=== PATIENT | male | born 1960 | race Caucasian/White ===

== ENCOUNTER 2017-05-08 11:10 | Emergency (ER) | payer OTHER ==
--- NOTE | 2017-05-08 11:57 | Emergency Department Report ---
Chief Complaint: Chest Pain Stated Complaint: CHEST PAIN Time Seen by Provider: 05/08/17 11:53 - HPI History of Present Illness: This is a 57-year-old male with no prior medical history presents with left- sided sharp, intermittent chest pain 2 days. Patient states worsened with bending or laying down. States pain is alleviated with sitting up. He admits to mild shortness of breath He denies fevers/chills/nausea/vomiting/taken medications or any allergies. - ROS Review of Systems: HPI noted - Exam Vital Signs: Vital Signs 05/08/17 11:20 Temperature 98.3 F Pulse Rate 92 H Respiratory 20 Rate Blood Pressure 110/70 O2 Sat by Pulse 97 Oximetry Physical Exam: GENERAL: Alert and oriented x3, no apparent distress, Normal Gait, atraumatic. LUNGS: Symetrical with respiration, crisp breath sounds, No wheezing, no rales or crackles, HEART: S1, S2 present, regular rate and rhythm without murmur, no rubs, no gallops. Non tender to palpation MSE screening note: Focused history and physical exam performed. Due to findings the following was ordered: ED Medical Decision Making - Medical Decision Making Chest pain protocol ordered. Chest x-ray ordered. Patient's recent ED physician. ED Disposition for MSE Condition: Stable
--- NOTE | 2017-05-08 13:13 | XRay Report ---
ROUTINE CHEST, TWO VIEWS: HISTORY: Chest pain, shortness of breath. The lungs are hyperinflated consistent with underlying emphysema. Left hilar prominence and infiltrate/atelectasis at the lingula is identified. A left hilar mass is suspected until proven otherwise. No pleural effusion or pneumothorax. Heart and pulmonary vascularity are within normal limits. No acute bony abnormality. IMPRESSION: Emphysematous changes. Lingular opacity and possible left hilar mass. Further evaluation with CT chest with contrast is recommended.
[2017-05-08 13:43] LABS: Anion Gap 20 mmol/L; Blood Urea Nitrogen 12 mg/dL (9-20); Calcium 8.9 mg/dL (8.4-10.2); Carbon Dioxide 22 mmol/L (22-30); Chloride 100.4 mmol/L (98-107); Glucose 91 mg/dL (75-100); Sodium 138 mmol/L (137-145)
[2017-05-08 13:51] LABS: Basophils % (Auto) 0.9 % (0.0-1.8); Eosinophils % (Auto) 3.3 % (0.0-4.3); Hemoglobin 9.9 gm/dl (11.8-15.2); Mean Corpuscular HGB Conc 32 % (32-34); Mean Corpuscular Hemoglobin 28 pg (28-32); Mean Corpuscular Volume 88 fl (84-94); Platelet Count 407 K/mm3 (140-440); Red Blood Count 3.51 M/mm3 (3.65-5.03); Red Cell Distribution Width 17.5 % (13.2-15.2); White Blood Count 10.7 K/mm3 (4.5-11.0)
[2017-05-08] MEDS ORDERED: NACL 0.9% 1000 ML 1,000 ML IV ONE (15:56)
--- NOTE | 2017-05-08 15:59 | Emergency Department Report ---
ED General Adult HPI - General Chief complaint: Chest Pain Stated complaint: CHEST PAIN Time Seen by Provider: 05/08/17 11:53 Source: patient, family, RN notes reviewed Mode of arrival: Ambulatory Limitations: No Limitations - History of Present Illness Initial comments: This is a 57-year-old male. He is previously unknown to me. He does not have a primary care doctor. He does not have chronic medical medical conditions that he is aware of. He reports that he is a chronic tobacco and cannabis consumer. As per family, he has not seen a physician in 40 years. The patient presents to the ER with left-sided chest pain. The pain is intermittent. It does not radiate to the back, arms or neck. Patient admits to night sweats. He endorses an unintentional 25 pound weight loss within the past month. There is no hematemesis. There is no bright red blood per rectum. There is no leg pain. There is no leg swelling. No recent trips greater than 4 hours. No recent hospital admissions. -: Gradual Location: chest Severity scale (0 -10): 8 Quality: aching Consistency: intermittent Improves with: none Worsens with: none Associated Symptoms: chest pain, fever/chills, loss of appetite, malaise, weakness. denies: cough, diaphoresis, headaches, shortness of breath, syncope - Related Data Previous Rx's Medication Instructions Recorded Last Taken Type Ibuprofen [Motrin] 600 mg PO Q8H PRN #30 tablet 05/08/17 Unknown Rx oxyCODONE [Roxicodone] 5 mg PO Q6HR PRN #15 tablet 05/08/17 Unknown Rx Allergies Allergy/AdvReac Type Severity Reaction Status Date / Time No Known Allergies Allergy Unverified 05/08/17 11:20 ED Review of Systems ROS: Stated complaint: CHEST PAIN Other details as noted in HPI Constitutional: denies: fever Eyes: denies: vision change ENT: denies: epistaxis Respiratory: see HPI Cardiovascular: chest pain Gastrointestinal: denies: abdominal pain, nausea, diarrhea, hematemesis, melena , hematochezia Genitourinary: denies: urgency, dysuria Musculoskeletal: denies: back pain Skin: denies: lesions Neurological: weakness Psychiatric: as per HPI ED Past Medical Hx - Past Medical History Previous Medical History?: No - Surgical History Past Surgical History?: No - Social History Smoking Status: Current Every Day Smoker Substance Use Type: Alcohol, Marijuana, Non Opiate Pain - Medications Home Medications: Home Medications Medication Instructions Recorded Confirmed Last Taken Type Ibuprofen [Motrin] 600 mg PO Q8H PRN #30 tablet 05/08/17 Unknown Rx oxyCODONE [Roxicodone] 5 mg PO Q6HR PRN #15 tablet 05/08/17 Unknown Rx ED Physical Exam - General Limitations: No Limitations General appearance: alert, in no apparent distress - Head Head exam: Present: atraumatic, normocephalic - Eye Eye exam: Present: normal appearance, EOMI. Absent: nystagmus - ENT ENT exam: Present: normal exam, normal orophraynx, mucous membranes moist, normal external ear exam - Neck Neck exam: Present: normal inspection, full ROM. Absent: tenderness, meningismus - Respiratory Respiratory exam: Present: normal lung sounds bilaterally. Absent: respiratory distress, wheezes, rales, rhonchi, stridor, chest wall tenderness, accessory muscle use, decreased breath sounds, prolonged expiratory - Cardiovascular Cardiovascular Exam: Present: regular rate, normal rhythm, normal heart sounds. Absent: bradycardia, tachycardia, irregular rhythm, systolic murmur, diastolic murmur, rubs, gallop - GI/Abdominal GI/Abdominal exam: Present: soft, normal bowel sounds. Absent: distended, tenderness, guarding, rebound, rigid, pulsatile mass - Rectal Rectal exam: Present: deferred - Extremities Exam Extremities exam: Present: normal inspection, full ROM, normal capillary refill. Absent: tenderness, pedal edema, joint swelling, calf tenderness - Back Exam Back exam: Present: normal inspection, full ROM. Absent: tenderness, CVA tenderness (R), CVA tenderness (L), muscle spasm, paraspinal tenderness, vertebral tenderness - Neurological Exam Neurological exam: Present: alert, oriented X3, normal gait, other (Extraocular movements intact. Tongue midline. No facial droop. Facial sensation intact to light touch in the V1, V2, V3 distribution bilaterally. 5 and 5 strength in 4 extremities.. Sensation is intact to light touch in 4 extremities.). Absent : motor sensory deficit - Psychiatric Psychiatric exam: Present: normal affect, normal mood - Skin Skin exam: Present: warm, dry, intact, normal color. Absent: rash ED Course Vital Signs 05/08/17 05/08/1717 11:20 15:00 15:10 Temperature 98.3 F Pulse Rate 92 H 94 H 85 Respiratory 20 31 H 27 H Rate Blood Pressure 110/70 Blood Pressure [Left] O2 Sat by Pulse 97 93 97 Oximetry 05/08/17 05/08/17 05/08/17 15:21 15:30 15:41 Temperature Pulse Rate 85 88 91 H Respiratory 24 24 25 H Rate Blood Pressure 125/79 134/79 134/79 Blood Pressure [Left] O2 Sat by Pulse 93 95 96 Oximetry 05/08/17 05/08/17 05/08/17 15:51 15:52 16:00 Temperature 100.3 F H Pulse Rate 89 94 H 89 Respiratory 20 18 27 H Rate Blood Pressure 134/79 134/79 Blood Pressure 125/79 [Left] O2 Sat by Pulse 95 94 94 Oximetry 05/08/17 05/08/17 05/08/17 16:11 16:21 16:30 Temperature Pulse Rate 84 87 89 Respiratory 24 20 19 Rate Blood Pressure 131/83 131/83 128/83 Blood Pressure [Left] O2 Sat by Pulse 96 95 94 Oximetry 05/08/17 05/08/17 05/08/17 17:21 17:30 17:41 Temperature Pulse Rate 86 85 Respiratory 19 15 Rate Blood Pressure 128/83 137/86 137/86 Blood Pressure [Left] O2 Sat by Pulse 98 95 93 Oximetry 05/08/17 05/08/17 05/08/17 17:51 18:00 18:11 Temperature Pulse Rate 87 87 88 Respiratory 20 18 21 Rate Blood Pressure 128/83 142/79 142/79 Blood Pressure [Left] O2 Sat by Pulse 93 92 93 Oximetry 05/08/17 05/08/17 05/08/17 18:21 18:30 18:41 Temperature Pulse Rate 88 86 88 Respiratory 18 19 19 Rate Blood Pressure 142/79 140/84 140/84 Blood Pressure [Left] O2 Sat by Pulse 91 91 93 Oximetry 05/08/17 05/08/17 05/08/17 18:51 19:00 19:11 Temperature Pulse Rate 85 86 87 Respiratory 19 21 20 Rate Blood Pressure 140/84 136/82 136/82 Blood Pressure [Left] O2 Sat by Pulse 93 91 95 Oximetry 05/08/17 05/08/17 05/08/17 19:21 19:30 19:41 Temperature Pulse Rate 84 82 83 Respiratory 19 18 19 Rate Blood Pressure 136/82 130/82 130/82 Blood Pressure [Left] O2 Sat by Pulse 91 93 93 Oximetry 05/08/17 05/08/17 05/08/17 19:51 20:00 20:11 Temperature Pulse Rate 85 85 81 Respiratory 15 26 H 16 Rate Blood Pressure 130/82 125/79 125/79 Blood Pressure [Left] O2 Sat by Pulse 93 92 92 Oximetry 05/08/17 20:32 Temperature 99.7 F H Pulse Rate Respiratory Rate Blood Pressure Blood Pressure [Left] O2 Sat by Pulse Oximetry - Reevaluation(s) Reevaluation #1: 05/08/17 16:26 differential diagnosis: Acute coronary syndrome, cancer, tumor, malignancy, pulmonary embolus Assessment and plan: 57-year-old male with unintentional weight loss, night sweats, atypical chest pain, low risk by heart score, low risk by MAXIM score, having chest pain on and off for a few months, worse over the past few days. X-ray of the chest demonstrates a left-sided mass, his clinical history does not appear to be consistent with pneumonia. CT scan of the chest is ordered to better delineate. Given concern for cancer/malignancy, we will also obtain CT scan of the abdomen, pelvis to assess for metastatic spread. Reevaluation #2: 05/08/17 16:28 low-grade temperature is appreciated, maybe secondary to cancer/ tumor/malignancy. Acetaminophen is ordered. The case was also discussed with the oncologist fire investigation manager, Dr. Jose Antonio Colvin, who agreed to follow-up the patient is an outpatient. 05/08/17 18:59 Reevaluation #3: 05/08/17 18:57 As expected, CT scan of the chest demonstrates left-sided complex thoracic mass , concerning for cancer/tumor/malignancy. There are a few other incidental findings noted on the CT scan of the chest. The CT scan of the abdomen and pelvis does not demonstrate any significant findings. Clinically doubt ileus, there is no abdominal pain, tenderness, rebound, guarding or peritoneal signs. The case is discussed with the thoracic surgeon at [facility], Dr. Aneudy Latham, and I have specifically discussed the patient's history, physical exam, laboratory studies, and CT scan findings. Dr. Latham recommends that the patient follow-up with him in outpatient within the next week, and he indicates he can take over the patient's care from there. I had an extensive discussion with the patient regarding his CAT scan findings, and impressed upon him the urgent need to follow up as an outpatient for his probable lung cancer. He verbalized understanding and understands the importance of close outpatient follow-up. 05/10/17 00:57 ED Medical Decision Making - Lab Data Result diagrams: 05/08/17 13:08 05/08/17 13:08 Vital Signs 05/08/17 05/08/17 11:20 15:52 Temperature 98.3 F 100.3 F H Pulse Rate 92 H 94 H Respiratory 20 18 Rate Blood Pressure 110/70 Blood Pressure 125/79 [Left] O2 Sat by Pulse 97 94 Oximetry Labs 05/08/17 05/08/17 13:08 13:08 WBC 10.7 RBC 3.51 L Hgb 9.9 L Hct 31.0 L MCV 88 MCH 28 MCHC 32 RDW 17.5 H Plt Count 407 Lymph % (Auto) 15.1 Brooks % (Auto) 11.6 H Eos % (Auto) 3.3 Baso % (Auto) 0.9 Lymph # 1.6 Brooks # 1.2 H Eos # 0.3 Baso # 0.1 Seg Neutrophils % 69.1 Seg Neutrophils # 7.4 Sodium 138 Potassium 4.0 Chloride 100.4 Carbon Dioxide 22 Anion Gap 20 BUN 12 Creatinine 1.0 Estimated GFR > 60 BUN/Creatinine Ratio 12.00 Glucose 91 Calcium 8.9 Troponin T < 0.010 - EKG Data -: EKG Interpreted by Ri EKG shows normal: sinus rhythm - EKG Data 05/08/17 16:28 Normal sinus, 88 bpm, normal axis, normal intervals, not morphologically consistent with STEMI, there is no prior EKG available for comparison. EKG #2 demonstrates sinus, 84 bpm, normal axis, premature ventricular contractions, abnormal EKG, not morphologically consistent with STEMI - Radiology Data Radiology results: report reviewed, image reviewed X-ray of the chest demonstrates hyperinflated lungs, emphysematous changes, lingular opacity and possible hilar left mass. CT scan of the chest demonstrates no pulmonary embolus. There is a large left- sided masslike consolidation in the left hilum which is extending into the left upper lobe and lingular. It is compressing the left pulmonary veins. May represent inflammation or infection, most likely neoplastic. There is a moderate left-sided pleural effusion. CT scan of the abdomen and pelvis demonstrates numerous incidental findings. Critical care attestation.: If time is entered above; I have spent that time in minutes in the direct care of this critically ill patient, excluding procedure time. ED Disposition Clinical Impression: Mass of left lung Disposition: DC-01 TO HOME OR SELFCARE Is pt being admited?: No Does the pt Need Aspirin: No Condition: Stable Instructions: Lung Cancer (ED) Additional Instructions: As we discussed, laboratory findings, and CT scan of the chest suggested left- sided lung cancer. Follow-up with the listed medical billing specialist within the next week, you may follow up with the thoracic lung specialist at [facility]; Dr. Aneudy Latham. Email [email or web address] It is very important to closely follow up within the next week as directed, to further evaluate, diagnosed, stage and manage the left lung mass. The mass is most likely cancer. Return to the ER right away with new pain, worsened pain, migration of pain, intractable nausea or vomiting, confusion, change in mental status, shortness of breath, inability to tolerate liquid feeds. Discontinue consumption of tobacco products. They are not healthy for you. Prescriptions: Ibuprofen [Motrin] 600 mg PO Q8H PRN #30 tablet PRN Reason: Pain oxyCODONE [Roxicodone] 5 mg PO Q6HR PRN #15 tablet PRN Reason: Pain Referrals: NOEMY VIGIL MD [Primary Care Provider] - 3-5 Days BENITO COLVIN MD [Staff Physician] - 3-5 Days
[2017-05-08] MEDS ORDERED: NACL ONE ×2 (16:03→16:45)
[2017-05-08] MEDS ORDERED: MORPHINE ONE (16:16)
[2017-05-08] MEDS ORDERED: TYLENOL PO ONE (16:28)
[2017-05-08 16:44] LABS: Alanine Aminotransferase 6 units/L (7-56); Albumin 3.5 g/dL (3.9-5); Alkaline Phosphatase 49 units/L (35-129); Lipase 38 units/L (13-60); Total Protein 6.9 g/dL (6.3-8.2)
[2017-05-08 16:45] LABS: Bilirubin,Direct < 0.2 mg/dL (0-0.2); Bilirubin,Indirect 0.1 mg/dL
[2017-05-08 16:52] LABS: INR 1.01 (0.87-1.13)
--- NOTE | 2017-05-08 18:06 | Cat Scan Report ---
FINAL REPORT EXAM: CT ABDOMEN PELVIS W CON HISTORY: cp TECHNIQUE: CT examination of the ABDOMEN after IV contrast CT examination of the PELVIS after IV contrast PRIORS: None. FINDINGS: Moderate left pleural effusion layers posteriorly. Adjacent slight left lower lobe compressive atelectasis. Scattered slight linear scar versus atelectasis in both lung bases. 4 mm anterior right middle lobe pulmonary ground-glass nodular opacity, series 3, image 147. Normal-appearing liver, gallbladder, adrenals, and spleen. Nonspecific slight diffuse prominence of the pancreatic ductal caliber without CT evidence of obstructing source. Pancreatic duct diameter is 3.8 mm in the head, 3.7 mm in the body, and 3.2 mm in the tail. No evidence of pancreatic mass or acute inflammation. Intact normal caliber abdominal aorta with moderate calcified and noncalcified plaque. Normal caliber IVC. Probably benign cyst in posterior left kidney. Otherwise normal-appearing kidneys and ureters. Normal-appearing stomach and duodenum. No small bowel distention in the abdomen and pelvis. No pelvic free fluid. Normal-appearing urinary bladder, prostate, and seminal vesicles. No focal abnormality in rectum and sigmoid colon. No gross ascites, free air, or colonic distention. No focal abnormality in cecum and terminal ileum. Normal-appearing appendix. Scattered nonspecific prominence of small and large bowel gas may reflect paralytic ileus. No definite obstructive pattern. IMPRESSION: Scattered prominence of small and large bowel gas may reflect paralytic ileus. Moderate left pleural effusion with adjacent slight left lower lobe compressive atelectasis 4 mm pulmonary ground-glass nodular opacity in right middle lobe Nonspecific diffuse prominence of the pancreatic duct Probably benign cyst in posterior left kidney
--- NOTE | 2017-05-08 18:17 | Cat Scan Report ---
FINAL REPORT EXAM: CT ANGIO CHEST HISTORY: cp TECHNIQUE: CT examination of the chest after IV contrast PRIORS: None. FINDINGS: Moderate left pleural effusion layers posteriorly. Minimal adjacent left lower lobe compressive atelectasis. Nonspecific dense masslike consolidation in the left hilum extends into the left upper lobe and lingula. It compresses the left pulmonary veins. Although possibly representing inflammation or infection, findings raise suspicion of neoplasm. Approximate AP dimension is 7.9 cm. Greatest dimension is 9.8 cm extending from left hilum to the anterior pleural surface. Sagittal dimension on coronal imaging is approximately 8.3 cm. A portion abuts the left main pulmonary artery and left cardiac margin. Normal cardiac size without pericardial effusion. Intact normal caliber thoracic aorta. Normal-appearing esophagus. Slight prominence of pretracheal lymph nodes without gross enlargement. No right-sided adenopathy. Please see abdomen/pelvis same-day CT report for abdominal findings. The visualized pulmonary arteries are diffusely patent bilaterally. There is no filling defect to suggest PE. No evidence of pneumothorax. No right pulmonary consolidation. 4 mm subpleural pulmonary nodule in the anterior aspect of the right middle lobe, series 3, image 95. IMPRESSION: Nonspecific masslike consolidation extends from the left hilum to the anterolateral left pleural surface of the left upper lobe and lingula. Although possibly representing inflammation or infection, findings raise suspicion of neoplasm abutting the left cardiac margin, main pulmonary artery, and narrowing the left pulmonary veins Moderate left pleural effusion with minimal adjacent compressive atelectasis Slight prominence of pretracheal lymph nodes without gross enlargement Nonspecific 4 mm subpleural pulmonary nodule in the anterior aspect of the right middle lobe
[2017-05-08] MEDS ORDERED: NACL 0.9% 1000 ML 0 ML ONE (19:08)
[2017-05-08] MEDS ORDERED: TYLENOL ONE (19:08)
[2017-05-08 20:27] VITALS: BP 125/79
[2017-05-08] MEDS ORDERED: MORPHINE IV ONE (20:32)
== END 2017-05-08 20:40 | disposition home or self-care (01) ==
LOC: ED 11:10
DX: R91.8 Other nonspecific abnormal finding of lung field (principal); F17.200 Nicotine dependence, unspecified, uncomplicated; F12.10 Cannabis abuse, uncomplicated
CPT/HCPCS: 36415; 71020; 71275; 74177; 80048; 80074; 83690; 84484; 85025; 85610; 93005; 93010; 96361; 96374; 99285; J2270; J7030; Q9967

== ENCOUNTER 2017-05-25 07:52 | Day surgery (SDC) | payer SELFPAY | END 2017-05-25 07:53 | disposition home or self-care (01) | LOC: CATHLABREC 07:52 | DX: R22.2 Localized swelling, mass and lump, trunk (principal); Z53.8 Procedure and treatment not carried out for other reasons ==

== ENCOUNTER 2017-06-21 08:23 | Day surgery (SDC) | payer OTHER ==
[2017-06-21] MEDS ORDERED: VERSED IV ONE ×3 (08:49→11:35)
[2017-06-21] MEDS ORDERED: SUBLIMAZE IV ONE (08:49)
[2017-06-21] MEDS ORDERED: NACL 0.9% 500 ML 500 ML IV SCH (09:00)
[2017-06-21 09:08] LABS: Basophils % (Auto) 2.6 % (0.0-1.8); Eosinophils % (Auto) 3.5 % (0.0-4.3); Hematocrit 31.5 % (35.5-45.6); Hemoglobin 10.1 gm/dl (11.8-15.2); Mean Corpuscular HGB Conc 32 % (32-34); Mean Corpuscular Hemoglobin 27 pg (28-32); Mean Corpuscular Volume 83 fl (84-94); Platelet Count 287 K/mm3 (140-440); Red Blood Count 3.79 M/mm3 (3.65-5.03); Red Cell Distribution Width 18.5 % (13.2-15.2); White Blood Count 9.4 K/mm3 (4.5-11.0)
[2017-06-21 09:18] LABS: INR 0.99 (0.87-1.13)
[2017-06-21] MEDS ORDERED: SUBLIMAZE ONE ×2 (10:59→11:35)
[2017-06-21 11:16] LABS: Alanine Aminotransferase 6 units/L (7-56); Albumin 4.1 g/dL (3.9-5); Albumin/Globulin Ratio 1.2 %; Alkaline Phosphatase 53 units/L (35-129); Anion Gap 20 mmol/L; Blood Urea Nitrogen 18 mg/dL (9-20); Calcium 8.9 mg/dL (8.4-10.2); Carbon Dioxide 24 mmol/L (22-30); Glucose 91 mg/dL (75-100); Potassium 4.1 mmol/L (3.6-5.0); Sodium 146 mmol/L (137-145); Total Protein 7.6 g/dL (6.3-8.2)
--- NOTE | 2017-06-21 12:51 | Cat Scan Report ---
CT guided biopsy of left lung mass. Procedure and findings: The patient's skin surface overlying the left anterior thorax was prepped and draped using sterile technique. Local anesthetic was injected into the skin. Using CT guidance, a 19-gauge sheath needle was advanced into the mass in the left upper lobe. 4 passes were made using a 20-gauge biopsy gun. Limited tissue cores were obtained, but initial touch prep slides demonstrated malignancy else, and thus the procedure was terminated. Intravenous conscious sedation was used. Intraservice time was 30 minutes. Independent cardiorespiratory monitoring was performed by the outpatient procedure nurse for 30 minutes, supervised by me. The patient tolerated procedure well clinically and was sent to the outpatient procedure unit for short term observation in satisfactory condition. A followup expiratory chest x-ray was also ordered.
[2017-06-21] MEDS ORDERED: VERSED IV NR (13:00)
--- NOTE | 2017-06-21 14:03 | Short Stay Summary ---
Short Stay Documentation Date of service: 06/21/17 - History Principal diagnosis: Lung mass - Allergies and Medications Current Medications: Allergies No Known Allergies Allergy (Unverified 05/08/17 11:20) Home Medications Medication Instructions Recorded Confirmed Last Taken Type No Known Home Medications [No 06/21/17 06/21/17 Unknown History Reported Home Medications] Active Medications Sodium Chloride (Nacl 0.9% 500 Ml) 500 mls @ 50 mls/hr IV DIRECT ALEXANDRO Last Admin: 06/21/17 09:10 Dose: 50 mls/hr Midazolam HCl (Versed) 5 mg IV ONCE NR Stop: 06/21/17 23:59 Last Admin: 06/21/17 11:40 Dose: 1 mg - Physical exam General appearance: no acute distress - Brief post op/procedure progress note Date of procedure: 06/21/17 Pre-op diagnosis: Lung mass Post-op diagnosis: same Procedure: Bx L lung mass Surgeon: CATE HOLLEY Estimated blood loss: none Specimen disposition: to lab Condition: stable - Disposition Condition at discharge: Good Disposition: DC-01 TO HOME OR SELFCARE Short Stay Discharge Plan Follow up with: PRIMARY CARE, [Primary Care Provider] - 7 Days
--- NOTE | 2017-06-21 14:42 | XRay Report ---
AP extra chest x-ray. History: Status post left lung biopsy. Findings: There is no evidence of pneumothorax. The large left lung mass is unchanged. No new findings are seen.
[2017-06-21 14:51] VITALS: BP 168/94
== END 2017-06-21 15:04 | disposition home or self-care (01) ==
LOC: CATHLABREC 08:23 → EDSTATUS 08:30 → CATHLABREC 15:04
DX: C34.12 Malignant neoplasm of upper lobe, left bronchus or lung (principal)
CPT/HCPCS: 32405; 36415; 77012; 80053; 85025; 85610; 85730; 88305; 88333; 88341; 88342; J2250; J3010; J7040; Q9967

== ENCOUNTER 2017-10-17 09:10 | Outpatient (CLI) | payer MEDICAID, SELFPAY ==
[2017-10-17 10:00] LABS: Blood Urea Nitrogen 12 mg/dL (9-20)
--- NOTE | 2017-10-17 12:30 | Cat Scan Report ---
CT CHEST WITH CONTRAST: HISTORY: Lung cancer. COMPARISON: 05/08/17. TECHNIQUE: Helical CT in 1.25mm intervals following IV contrast. Sagittal and coronal reformatted images. FINDINGS: Thyroid gland: Normal. Tracheobronchial tree: Normal. Esophagus: Normal. Heart: Normal. Pericardium: Normal. Mediastinum: Normal. Lung Hand: The large mass in the left perihilar region has essentially resolved since the CTA chest dated 05/08/[address] biopsy dated 06/21/17. There is minor scarring remaining in the lingula. This presumably represents a positive response to therapy. There are emphysematous changes throughout the remainder of both lungs but no new mass or infiltrate. Pleural Spaces: A moderate layering left pleural effusion measures up to 4 cm in thickness. Musculoskeletal: No suspicious bony lesion or fracture is identified. IMPRESSION: A positive response to therapy is demonstrated since 05/08/17. Near complete or complete resolution of the lingular mass is demonstrated. A moderate left pleural effusion remains. Emphysema.
--- NOTE | 2017-10-17 12:32 | Cat Scan Report ---
CT ABDOMEN PELVIS WITH CONTRAST: HISTORY: Lung cancer. COMPARISON: 05/08/17. TECHNIQUE: Helical CT in 1.25mm intervals following IV contrast. Sagittal and coronal reconstructions. FINDINGS: Liver: Normal. Biliary system: Normal. Pancreas: Normal. Spleen: Normal. Kidneys: Normal. 1 cm a simple left renal cyst is noted. Adrenal glands: Normal. Aorta: Normal. Intestines: Normal. Appendix: Not identified. Ascites: None. Adenopathy: None. Musculoskeletal: No suspicious bony lesion is detected. IMPRESSION: Essentially unremarkable exam of the abdomen. No evidence for metastatic disease or acute process.
== END 2017-10-17 09:11 | disposition home or self-care (01) ==
LOC: CT 09:10
DX: C34.92 Malignant neoplasm of unspecified part of left bronchus or lung (principal); J43.9 Emphysema, unspecified; N28.1 Cyst of kidney, acquired; J90 Pleural effusion, not elsewhere classified; J98.4 Other disorders of lung; F17.200 Nicotine dependence, unspecified, uncomplicated
CPT/HCPCS: 36415; 71260; 74160; 82565; 84520; Q9967

== ENCOUNTER 2018-03-28 01:14 | Emergency (ER) | payer MEDICAID ==
[2018-03-28] MEDS ORDERED: ATIVAN IV ONE (01:22)
[2018-03-28] MEDS ORDERED: ATIVAN ONE (01:22)
--- NOTE | 2018-03-28 01:32 | Emergency Department Report ---
ED Altered Mental Status HPI - General Chief Complaint: Altered Mental Status Stated Complaint: SEIZURE Time Seen by Provider: 03/28/18 01:32 Source: patient, EMS Mode of arrival: Stretcher Limitations: Altered Mental Status - History of Present Illness MD Complaint: altered mental status, decreased responsiveness -: This evening Severity: Unable to Determine Consistency of Symptoms: unknown Context: seizure disorder Associated Symptoms: weakness - Related Data Home Medications Medication Instructions Recorded Confirmed Last Taken No Known Home Medications [No 06/21/17 06/21/17 Unknown Reported Home Medications] Allergies Allergy/AdvReac Type Severity Reaction Status Date / Time No Known Allergies Allergy Unverified 05/08/17 11:20 ED Review of Systems ROS: Stated complaint: SEIZURE Other details as noted in HPI Comment: Unobtainable due to pts medical conditions ED Past Medical Hx - Past Medical History Hx Sickle Cell Disease: No Hx HIV: No Additional medical history: LUNG CANCER - Social History Smoking Status: Current Some Day Smoker - Medications Home Medications: Home Medications Medication Instructions Recorded Confirmed Last Taken Type No Known Home Medications [No 06/21/17 06/21/17 Unknown History Reported Home Medications] ED Physical Exam - General Limitations: Altered Mental Status General appearance: lethargic, obtunded, cachectic - Head Head exam: Present: atraumatic, normocephalic, normal inspection - Eye Eye exam: Present: normal appearance, PERRL, EOMI Pupils: Present: normal accommodation - ENT ENT exam: Present: normal exam - Neck Neck exam: Present: normal inspection, full ROM - Respiratory Respiratory exam: Present: normal lung sounds bilaterally - Cardiovascular Cardiovascular Exam: Present: regular rate, normal rhythm, normal heart sounds - GI/Abdominal GI/Abdominal exam: Present: soft, normal bowel sounds. Absent: tenderness, guarding - Rectal Rectal exam: Present: deferred - Extremities Exam Extremities exam: Present: normal inspection, full ROM, normal capillary refill - Back Exam Back exam: Present: normal inspection - Neurological Exam Neurological exam: Present: altered, other (GCS = 3) - Skin Skin exam: Present: warm, dry, intact ED Course Vital Signs 03/28/18 03/28/18 03/28/18 01:22 01:30 01:31 Temperature 98.2 F Pulse Rate 120 H 120 H Respiratory 24 24 Rate Blood Pressure 185/82 185/82 O2 Sat by Pulse 99 99 100 Oximetry 0503/28/18 03/28/18 01:45 02:00 02:30 Temperature Pulse Rate 129 H 138 H 125 H Respiratory 27 H 19 Rate Blood Pressure 144/84 144/84 177/101 O2 Sat by Pulse 100 100 100 Oximetry 03/28/18 03/28/18 03/28/18 03:14 03:15 03:23 Temperature Pulse Rate 122 H 123 H Respiratory 31 H 36 H Rate Blood Pressure 151/96 164/103 O2 Sat by Pulse 100 100 Oximetry - Reevaluation(s) Reevaluation #1: 03/28/18 05:49 I consulted the Neurosurgeon collection specialist at the [facility] [place] [facility] ([facility]) Dr Mueller. He accepted patient for transfer to [facility] for higher level of care. - Intubation Time Out Performed: Yes Sedative: Etomidate Mg Given: 20 Paralytic: Rocuronium Mg Given: 80 Laryngoscope: none Assist Device Used: other (Glidescope) ET Tube Size: 8 Tube Secured Depth (cm): 23 Tube Secured Location: lips Tube Placement Confirmation: visualized tube passing t, equal breath sounds bilat, no breath sounds over epi Patient Tolerated Procedure: well Intubation Complications: none - Lab Data Result diagrams: 03/28/18 01:51 03/28/18 01:51 Lab Results 03/28/18 03/28/18 03/28/18 Range/Units 01:51 01:51 01:51 WBC 11.2 H (4.5-11.0) K/mm3 RBC 3.52 L (3.65-5.03) M/mm3 Hgb 10.3 L (11.8-15.2) gm/dl Hct 32.8 L (35.5-45.6) % MCV 93 (84-94) fl MCH 29 (28-32) pg MCHC 31 L (32-34) % RDW 19.0 H (13.2-15.2) % Plt Count 253 (140-440) K/mm3 Lymph % (Auto) 17.5 (13.4-35.0) % [place] % (Auto) 8.2 H (0.0-7.3) % Eos % (Auto) 3.2 (0.0-4.3) % Baso % (Auto) 0.8 (0.0-1.8) % Lymph # 2.0 (1.2-5.4) K/mm3 [place] # 0.9 H (0.0-0.8) K/mm3 Eos # 0.4 (0.0-0.4) K/mm3 Baso # 0.1 (0.0-0.1) K/mm3 Seg Neutrophils % 70.3 H (40.0-70.0) % Seg Neutrophils # 7.9 H (1.8-7.7) K/mm3 PT 12.9 (12.2-14.9) Sec. INR 0.93 (0.87-1.13) APTT 28.1 (24.2-36.6) Sec. Sodium (137-145) mmol/L Potassium (3.6-5.0) mmol/L Chloride (98-107) mmol/L Carbon Dioxide (22-30) mmol/L Anion Gap mmol/L BUN (9-20) mg/dL Creatinine (0.8-1.5) mg/dL Estimated GFR ml/min BUN/Creatinine Ratio % Glucose (75-100) mg/dL Lactic Acid 13.90 H* (0.7-2.0) mmol/L Calcium (8.4-10.2) mg/dL Total Bilirubin (0.1-1.2) mg/dL AST (5-40) units/L ALT (7-56) units/L Alkaline Phosphatase (35-129) units/L Total Creatine Kinase (55-170) units/L Troponin T (0.00-0.029) ng/mL NT-Pro-B Natriuret Pep (0-900) pg/mL Total Protein (6.3-8.2) g/dL Albumin (3.9-5) g/dL Albumin/Globulin Ratio % Urine Color (Yellow) Urine Turbidity (Clear) Urine pH (5.0-7.0) Ur Specific [place] (1.003-1.030) Urine Protein (Negative) mg/dL Urine Glucose (UA) (Negative) mg/dL Urine Ketones (Negative) mg/dL Urine Blood (Negative) Urine Nitrite (Negative) Urine Bilirubin (Negative) Urine Urobilinogen (<2.0) mg/dL Ur Leukocyte Esterase (Negative) Urine WBC (Auto) (0.0-6.0) /HPF Urine RBC (Auto) (0.0-6.0) /HPF U Epithel Cells (Auto) (0-13.0) /HPF Blood Type Antibody Screen 03/28/18 03/28/18 03/28/18 Range/Units 01:51 01:51 02:40 WBC (4.5-11.0) K/mm3 RBC (3.65-5.03) M/mm3 Hgb (11.8-15.2) gm/dl Hct (35.5-45.6) % MCV (84-94) fl MCH (28-32) pg MCHC (32-34) % RDW (13.2-15.2) % Plt Count (140-440) K/mm3 Lymph % (Auto) (13.4-35.0) % [place] % (Auto) (0.0-7.3) % Eos % (Auto) (0.0-4.3) % Baso % (Auto) (0.0-1.8) % Lymph # (1.2-5.4) K/mm3 [place] # (0.0-0.8) K/mm3 Eos # (0.0-0.4) K/mm3 Baso # (0.0-0.1) K/mm3 Seg Neutrophils % (40.0-70.0) % Seg Neutrophils # (1.8-7.7) K/mm3 PT (12.2-14.9) Sec. INR (0.87-1.13) APTT (24.2-36.6) Sec. Sodium 144 (137-145) mmol/L Potassium 4.1 (3.6-5.0) mmol/L Chloride 103.1 (98-107) mmol/L Carbon Dioxide 11 L D (22-30) mmol/L Anion Gap 34 mmol/L BUN 14 (9-20) mg/dL Creatinine 1.2 (0.8-1.5) mg/dL Estimated GFR > 60 ml/min BUN/Creatinine Ratio 12 % Glucose 140 H (75-100) mg/dL Lactic Acid (0.7-2.0) mmol/L Calcium 9.0 (8.4-10.2) mg/dL Total Bilirubin < 0.20 (0.1-1.2) mg/dL AST 53 H (5-40) units/L ALT 23 (7-56) units/L Alkaline Phosphatase 64 (35-129) units/L Total Creatine Kinase 2285 H (55-170) units/L Troponin T < 0.010 (0.00-0.029) ng/mL NT-Pro-B Natriuret Pep 47.50 (0-900) pg/mL Total Protein 7.4 (6.3-8.2) g/dL Albumin 4.3 (3.9-5) g/dL Albumin/Globulin Ratio 1.4 % Urine Color Straw (Yellow) Urine Turbidity Clear (Clear) Urine pH 5.0 (5.0-7.0) Ur Specific [place] 1.013 (1.003-1.030) Urine Protein <15 mg/dl (Negative) mg/dL Urine Glucose (UA) Neg (Negative) mg/dL Urine Ketones Neg (Negative) mg/dL Urine Blood Sm (Negative) Urine Nitrite Neg (Negative) Urine Bilirubin Neg (Negative) Urine Urobilinogen < 2.0 (<2.0) mg/dL Ur Leukocyte Esterase Neg (Negative) Urine WBC (Auto) < 1.0 (0.0-6.0) /HPF Urine RBC (Auto) 1.0 (0.0-6.0) /HPF U Epithel Cells (Auto) 1.0 (0-13.0) /HPF Blood Type A POSITIVE Antibody Screen Negative 03/28/18 03/28/18 Range/Units 02:58 05:13 WBC (4.5-11.0) K/mm3 RBC (3.65-5.03) M/mm3 Hgb (11.8-15.2) gm/dl Hct (35.5-45.6) % MCV (84-94) fl MCH (28-32) pg MCHC (32-34) % RDW (13.2-15.2) % Plt Count (140-440) K/mm3 Lymph % (Auto) (13.4-35.0) % [place] % (Auto) (0.0-7.3) % Eos % (Auto) (0.0-4.3) % Baso % (Auto) (0.0-1.8) % Lymph # (1.2-5.4) K/mm3 [place] # (0.0-0.8) K/mm3 Eos # (0.0-0.4) K/mm3 Baso # (0.0-0.1) K/mm3 Seg Neutrophils % (40.0-70.0) % Seg Neutrophils # (1.8-7.7) K/mm3 PT (12.2-14.9) Sec. INR (0.87-1.13) APTT (24.2-36.6) Sec. Sodium (137-145) mmol/L Potassium (3.6-5.0) mmol/L Chloride (98-107) mmol/L Carbon Dioxide (22-30) mmol/L Anion Gap mmol/L BUN (9-20) mg/dL Creatinine (0.8-1.5) mg/dL Estimated GFR ml/min BUN/Creatinine Ratio % Glucose (75-100) mg/dL Lactic Acid 5.70 H* 2.80 H* (0.7-2.0) mmol/L Calcium (8.4-10.2) mg/dL Total Bilirubin (0.1-1.2) mg/dL AST (5-40) units/L ALT (7-56) units/L Alkaline Phosphatase (35-129) units/L Total Creatine Kinase (55-170) units/L Troponin T (0.00-0.029) ng/mL NT-Pro-B Natriuret Pep (0-900) pg/mL Total Protein (6.3-8.2) g/dL Albumin (3.9-5) g/dL Albumin/Globulin Ratio % Urine Color (Yellow) Urine Turbidity (Clear) Urine pH (5.0-7.0) Ur Specific [place] (1.003-1.030) Urine Protein (Negative) mg/dL Urine Glucose (UA) (Negative) mg/dL Urine Ketones (Negative) mg/dL Urine Blood (Negative) Urine Nitrite (Negative) Urine Bilirubin (Negative) Urine Urobilinogen (<2.0) mg/dL Ur Leukocyte Esterase (Negative) Urine WBC (Auto) (0.0-6.0) /HPF Urine RBC (Auto) (0.0-6.0) /HPF U Epithel Cells (Auto) (0-13.0) /HPF Blood Type Antibody Screen - Radiology Data Radiology results: report reviewed, image reviewed - Medical Decision Making Seizure Disorder. Altered Mental Status. Critical Care Time: Yes Critical care time in (mins) excluding proc time.: 65 Critical care attestation.: If time is entered above; I have spent that time in minutes in the direct care of this critically ill patient, excluding procedure time. ED Disposition Clinical Impression: Seizure, Respiratory failure requiring intubation, Frontal mass of brain, Brain bleed Altered mental status Qualifiers: Altered mental status type: unspecified Qualified Code(s): R41.82 - Altered mental status, unspecified Disposition: DC/TX-02 SHRT-TRM GEN HOSP IP Is pt being admited?: No Does the pt Need Aspirin: No Condition: Stable Referrals: PRIMARY CARE, [Primary Care Provider] - 3-5 Days Time of Disposition: 05:45
[2018-03-28] MEDS ORDERED: KEPPRA 1,000 MG/NS 0.75% 100ML 1,000 MG/100 ML BAG IV ONE (01:55)
[2018-03-28 02:12] LABS: Basophils # (Auto) 0.1 K/mm3 (0.0-0.1); Basophils % (Auto) 0.8 % (0.0-1.8); Eosinophils # (Auto) 0.4 K/mm3 (0.0-0.4); Eosinophils % (Auto) 3.2 % (0.0-4.3); Hematocrit 32.8 % (35.5-45.6); Hemoglobin 10.3 gm/dl (11.8-15.2); Lymphocytes % (Auto) 17.5 % (13.4-35.0); Mean Corpuscular HGB Conc 31 % (32-34); Mean Corpuscular Hemoglobin 29 pg (28-32); Mean Corpuscular Volume 93 fl (84-94); Monocytes # (Auto) 0.9 K/mm3 (0.0-0.8); Monocytes % (Auto) 8.2 % (0.0-7.3); Platelet Count 253 K/mm3 (140-440); Red Blood Count 3.52 M/mm3 (3.65-5.03)
[2018-03-28 02:20] LABS: INR 0.93 (0.87-1.13); Partial Thromboplastin Time 28.1 Sec. (24.2-36.6)
[2018-03-28 02:34] LABS: Alanine Aminotransferase 23 units/L (7-56); Albumin 4.3 g/dL (3.9-5); BUN/Creatinine Ratio 12; Blood Urea Nitrogen 14 mg/dL (9-20); Hemolysis Index 2
[2018-03-28] MEDS ORDERED: NACL 0.9% 1000 ML 1,000 ML IV ONE ×2 (02:45→02:48)
[2018-03-28] MEDS ORDERED: DIPRIVAN 10 MG/ML 1,000 MG/100 ML BOTTLE IV SCH (03:00)
[2018-03-28] MEDS ORDERED: NACL 0.9% 500 ML IV SCH (03:00)
[2018-03-28 03:09] LABS: Bilirubin,Urine NEG (Negative); Blood,Urine SM (Negative); Color,Urine Straw (Yellow); Protein,Urine <15 mg/dL mg/dL (Negative); Urobilinogen,Urine < 2.0 mg/dL (<2.0); WBC,Urine < 1.0 /HPF (0.0-6.0)
[2018-03-28] MEDS ORDERED: AMIDATE IV ONE (05:21)
[2018-03-28] MEDS ORDERED: ZEMURON IV ONE (05:21)
[2018-03-28] MEDS ORDERED: DECADRON IV ONE (05:45)
[2018-03-28 07:58] VITALS: BP 140/78
--- NOTE | 2018-04-01 14:16 | Cat Scan Report ---
FINAL REPORT EXAM: CT HEAD/BRAIN WO CON HISTORY: Altered Mental Status , known metastatic lung cancer TECHNIQUE: CT imaging acquired through the head without intravenous contrast. Transaxial reformations are provided. PRIORS: 03/24/2018 FINDINGS: Anterior right frontal lobe intraparenchymal mass with peripheral hyperdensity and surrounding hypodense edema measuring up to 25 millimeters in greatest AP dimension is slightly larger compared to 03/24/2018, as measured today. Surrounding vasogenic edema is similar in extent. No midline shift or herniation. Normal spherical shape of the globes. Paranasal sinuses and mastoid air cells are clear. No skull fracture visualized. IMPRESSION: Metastatic lesion in the right frontal lobe may be slightly larger compared to 03/24/2018, which could be due to slice selection or a component of tumoral hemorrhage. There is no midline shift or herniation.
--- NOTE | 2018-04-01 14:16 | XRay Report ---
FINAL REPORT EXAM: XR CHEST 1V AP HISTORY: Altered Mental Status /HX OF LUNG CA. TECHNIQUE: A single frontal portable radiograph of the chest was obtained. Comparison is made with prior study 03/24/2018. FINDINGS: The cardiac silhouette and mediastinum are within normal limits. There is been interval placement of an endotracheal tube, with its tip approximately 8 cm above the blessing. A nasogastric tube traverses the thorax into the stomach, though its tip is not included on this film. There is hyperinflation/COPD. A small left pleural effusion is again demonstrated. There is new mild patchy consolidation at both lung bases, representing atelectasis and/or infiltrates. Minimal linear scarring is again noted at the left lung apex. There is no pneumothorax. Mild spondylotic changes are seen in the spine. IMPRESSION: 1. Status post placement of endotracheal tube, with its tip 8 cm above the blessing. 2. New mild patchy bibasilar opacities, representing atelectasis and/or infiltrates. Small left pleural effusion, stable.
== END 2018-03-28 08:09 | disposition short-term general hospital (02) ==
LOC: ED 01:14
DX: G40.909 Epilepsy, unspecified, not intractable, without status epilepticus (principal); F17.200 Nicotine dependence, unspecified, uncomplicated
CPT/HCPCS: 31500; 36415; 51701; 70450; 71045; 80053; 81001; 82140; 82550; 82803; 83880; 84484; 85025; 85610; 85730; 86850; 86900; 86901; 93005; 93010; 96361; 96365; 96366; 96375; 99291; J1100; J1953; J2060; J2704; J7030

== ENCOUNTER 2018-05-20 09:06 | Outpatient (CLI) | payer MEDICAID ==
--- NOTE | 2018-05-20 15:04 | Cat Scan Report ---
CT CHEST WITH CONTRAST: HISTORY: Restaging of lung cancer. COMPARISON: 10/17/17. TECHNIQUE: Helical CT in 1.25mm intervals following IV contrast. Sagittal and coronal reformatted images. FINDINGS: Thyroid gland: Normal. Tracheobronchial tree: The tracheobronchial tree is patent. There is mild smooth thickening involving the proximal branches of the bronchi leading to the lingula and left lower lobe. This thickening measures up to 6 mm which is essentially unchanged since the previous exam. This may be secondary to residual tumor or associated with radiation changes. Esophagus: Normal. Heart: The heart is normal size. 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 Pericardium: Normal. Mediastinum: No bulky adenopathy or mass is identified. Lung Hand: Emphysematous changes are stable bilaterally. There is linear scarring in the lingula and left perihilar region probably associated with radiation changes. No evidence for recurrent lung mass or infiltrate. Pleural Spaces: The moderate left pleural effusion is nearly resolved since the previous exam. No pleural mass is appreciated. Musculoskeletal: No suspicious bony lesion or fracture is identified. IMPRESSION: No change or mild improvement since 10/17/17. Radiation changes are suspected in the left lung and left perihilar region as described. Near resolution of the left pleural effusion. No new suspicious mass or adenopathy in the chest. Emphysema.
--- NOTE | 2018-05-20 15:06 | Cat Scan Report ---
CT ABDOMEN WITH CONTRAST: HISTORY: Restaging of lung cancer. COMPARISON: 10/17/17. TECHNIQUE: Helical CT in 1.25mm intervals following IV contrast. Sagittal and coronal reconstructions. FINDINGS: Liver: Normal. Biliary system: Normal. Pancreas: Normal. Spleen: Normal. Kidneys/ureters/bladder: Normal. 1 cm left renal cyst is unchanged. Adrenal glands: Normal. Aorta: Normal. Intestines: Normal. Appendix: Not included. Ascites: None. Adenopathy: None. Musculoskeletal: Normal. IMPRESSION: Unremarkable CT of the abdomen. No evidence for acute process or metastatic disease.
== END 2018-05-20 09:07 | disposition home or self-care (01) ==
LOC: CT 09:06
DX: C34.90 Malignant neoplasm of unspecified part of unspecified bronchus or lung (principal); J43.9 Emphysema, unspecified
CPT/HCPCS: 71260; 74160; Q9967

== ENCOUNTER 2018-10-25 12:05 | Outpatient (CLI) | payer MEDICAID ==
[2018-10-25 12:39] LABS: Blood Urea Nitrogen 14 mg/dL (9-20)
--- NOTE | 2018-10-25 18:01 | Cat Scan Report ---
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 PRIORS: CT of the head from 03/27/2018. FINDINGS: There is mild mass effect on the frontal horn of the right lateral ventricle. The ventricles are nond ilated. The right frontal lobe parenchymal mass is unchanged in size in the AP dimension measuring 2 .5 centimeters. The transverse dimension is decreased measuring 1.6 centimeters, previously 1.9 centi meters. This lesion demonstrates heterogeneous enhancement. Surrounding edema is increased. No midlin e shift is noted. No new masses are identified. The basilar cisterns are patent. An air-fluid level is seen in the right sphenoid sinus. This can be seen in acute sinusitis. The extr acranial soft tissues demonstrate no abnormality. The calvarium is intact. The orbits are intact. The mastoid air cells are clear. IMPRESSION: 1. Mild decrease in size of the transverse dimension right frontal lobe metastasis without change in the AP dimension. Increased surrounding edema. No midline shift. 2. Air-fluid level in the right sphenoid sinus can be seen in acute sinusitis.
--- NOTE | 2018-10-25 18:10 | Cat Scan Report ---
FINAL REPORT EXAM: CT CHEST W CON HISTORY: HISTORY OF LUNG CANCER no history provided for treatment or location of cancer TECHNIQUE: Axial images were performed from the lung apices to the bases. Multiplanar reformats are performed on the acquisition scanner. Comparison: 05/20/2018 images, no report provided, 05/08/2017 FINDINGS: There is interstitial coarsening, unchanged from previous. There is stable inferior lingular scar with consolidation. There is underlying pulmonary emphysema. Mild traction bronchiectasis to the lingula. No developing infiltrates or new areas of consolidation. Central airways are unremarkable. There is stable scarring of the posterior right upper lobe. Great vessels are unremarkable. There are small AP window lymph nodes measuring approximately 7 7 millimeters. There is infiltrative left hilar and infrahilar soft tissue density. There is increasing left infrahi lar soft tissue density measuring 2.1 x 1.5 centimeters, somewhat more masslike than on the most rece nt prior in the region of the primary lung cancer seen in 2017. It is unknown whether the soft tissue densities within the hilar interstitium a or arising from the lateral wall of the left atrial append age. A component of intraluminal thrombus in the left atrial appendage cannot be excluded. Since the April 2018 exam, there is persistent high grade stenosis of the left inferior pulmonary vein . The left superior pulmonary vein has occluded since the 2017 CT. The esophagus is mildly thickened. No focal lytic or blastic bony lesions. Imaged upper abdomen is unremarkable. IMPRESSION: Findings concerning for disease recurrence in left infrahilar region with increasing rounded soft tis latonya density along the lateral wall of the left atrial appendage measuring 2.1 x 1.5 x 2.0 centimeters . A component of the left atrial appendage thrombus cannot be excluded. Consider ECHO. There is infiltrate of plaque-like density surrounding the bronchovascular interstitium to the left l ower lobe and small AP window lymph nodes. Consider CT PET. Underlying pulmonary emphysema. Traction bronchiectasis left upper lobe. No discrete pulmonary nodules or developing infiltrates. Resolved pleural effusions since the 2017 exam.
--- NOTE | 2018-10-25 18:14 | Cat Scan Report ---
FINAL REPORT EXAM: CT ABDOMEN PELVIS W CON HISTORY: HISTORY OF LUNG CANCER treatment history is not provided. No prior reports provided, no fur ther history TECHNIQUE: Axial images were performed from the lung bases to the pubic symphysis. Multiplanar refor mats are performed on the acquisition scanner. Total exam DLP 853.65 mGy-cm Comparison: 05/20/2018 images, no report, CT abdomen and pelvis 05/08/2017 images, no report FINDINGS: Please see CT chest for full details of the lungs including concern for disease recurrence. Normal enhancement and appearance of the liver, spleen, pancreas, gallbladder, bilateral adrenal glan ds, and bilateral kidneys. Benign posterior left renal cortical cyst. Mesenteric vessels enhance normally. Stomach is decompressed. No regional adenopathy. Contrast is present in the colon. Urinary bladder is moderately distended. Prostate is not enlarged. No free air or free fluid. Nonobstructive bowel pattern. No focal lytic or blastic bony lesion. There is very little body fat. Right SI joint is ankylosed. No compression fracture. IMPRESSION: Normal CT abdomen and pelvis. Please read CT report of the chest separately concerning for disease recurrence in the left infrahila r region.
== END 2018-10-25 12:06 | disposition home or self-care (01) ==
LOC: CT 12:05
DX: C79.31 Secondary malignant neoplasm of brain (principal); J01.30 Acute sphenoidal sinusitis, unspecified; Z87.891 Personal history of nicotine dependence
CPT/HCPCS: 36415; 70460; 71260; 74177; 82565; 84520; Q9967

== ENCOUNTER 2018-12-11 02:53 | Emergency (ER) | payer MEDICAID ==
[2018-12-11 03:34] LABS: Basophils # (Auto) 0.1 K/mm3 (0.0-0.1); Basophils % (Auto) 0.6 % (0.0-1.8); Eosinophils # (Auto) 0.1 K/mm3 (0.0-0.4); Eosinophils % (Auto) 0.4 % (0.0-4.3); Hematocrit 36.3 % (35.5-45.6); Hemoglobin 11.5 gm/dl (11.8-15.2); Lymphocytes # (Auto) 1.8 K/mm3 (1.2-5.4); Lymphocytes % (Auto) 12.9 % (13.4-35.0); Mean Corpuscular HGB Conc 32 % (32-34); Mean Corpuscular Volume 84 fl (84-94); Monocytes # (Auto) 1.3 K/mm3 (0.0-0.8); Monocytes % (Auto) 9.3 % (0.0-7.3); Platelet Count 295 K/mm3 (140-440); Red Blood Count 4.35 M/mm3 (3.65-5.03); Red Cell Distribution Width 18.4 % (13.2-15.2)
[2018-12-11 03:44] LABS: INR 0.84 (0.87-1.13)
[2018-12-11 03:45] LABS: Partial Thromboplastin Time 23.2 Sec. (24.2-36.6)
[2018-12-11 03:55] LABS: BUN/Creatinine Ratio 23; Blood Urea Nitrogen 18 mg/dL (9-20); Calcium 9.9 mg/dL (8.4-10.2); Hemolysis Index 13
--- NOTE | 2018-12-11 03:58 | Cat Scan Report ---
FINAL REPORT PROCEDURE: CT HEAD/BRAIN WO CON TECHNIQUE: Computerized tomography of the head was performed without contrast material. HISTORY: neuro deficits < 6hrs or sx present upon awakening hx. lung ca with brain mets COMPARISON: 10/25/2018 FINDINGS: There is vasogenic edema in the right frontal lobe similar to prior study. Previously noted right fro ntal metastasis is ill-defined due to lack of contrast but appears to be larger measuring approximate ly 3 centimeters in diameter currently. There is mass effect on the frontal horn of the right lateral ventricle causing slight effacement. There is left-sided shift of the septum pellucidum by 3.5 kylee meters. There is no herniation. There is no hemorrhage. There is no evidence of recent infarction. The bony calvarium is intact. The paranasal sinuses are clear. IMPRESSION: Right frontal vasogenic edema appear is unchanged from prior study. Right frontal metastasis may be s lightly larger but evaluation is limited without contrast. There is no hemorrhage or recent infarction. There is mass effect and midline shift as described. There is no herniation.
--- NOTE | 2018-12-11 04:02 | Cat Scan Report ---
FINAL REPORT PROCEDURE: CT CERVICAL SPINE WO CON TECHNIQUE: Computerized tomography of the cervical spine was performed from the skull base to T1 wit hout contrast material. HISTORY: fall COMPARISON: No prior studies are available for comparison. FINDINGS: There are no fractures or malalignments. The disc spaces are normal. The facet joints are intact. There is no facet dislocation. The skull base and foramen magnum are intact. Soft tissues are unremarkable. IMPRESSION: No significant abnormality.
[2018-12-11] MEDS ORDERED: KEPPRA 1,000 MG/NS 0.75% 100ML 1,000 MG/100 ML BAG IV ONE (04:48)
[2018-12-11] MEDS ORDERED: DECADRON IV ONE (04:48)
[2018-12-11 05:10] VITALS: BP 120/89
--- NOTE | 2018-12-11 05:20 | Emergency Department Report ---
HPI - General Chief Complaint: Neuro Symptoms/Deficit Time Seen by Provider: 12/11/18 03:26 - HPI HPI: 58-year-old male presents to the emergency department via EMS with a complaint of a ground-level fall at around 9 or 10 PM this evening with some left-sided weakness. The patient has a known history of lung cancer with brain metastasis. He has had previous radiation and chemotherapy. His oncologist is Dr. CAMPOVERDE. The patient is normally ambulatory and able to do his ADLs. He was attempting to climb the stairs but was unable to do so and fell down and had difficulty getting up. His friend came over and found him on the ground with some left-sided weakness, left leg greater than left arm. The patient is otherwise awake and alert and oriented. His speech is at his baseline. ED Past Medical Hx - Past Medical History Previous Medical History?: Yes Hx Sickle Cell Disease: No Hx HIV: No Additional medical history: LUNG CANCER stage 4, chemo & rad to lung and brain; last tx 08/2018 - Surgical History Past Surgical History?: No - Social History Smoking Status: Current Every Day Smoker Substance Use Type: Alcohol - Medications Home Medications: Home Medications Medication Instructions Recorded Confirmed Last Taken Type RX: No Known Home Medications [No 06/21/17 06/21/17 Unknown History Reported Home Medications] ED Review of Systems ROS: Stated complaint: POSS STROKE Other details as noted in HPI Comment: All other systems reviewed and negative Constitutional: denies: chills, fever Eyes: denies: eye pain, vision change ENT: denies: ear pain, throat pain Respiratory: denies: cough, shortness of breath Cardiovascular: denies: chest pain, palpitations Gastrointestinal: denies: abdominal pain Genitourinary: denies: urgency, dysuria Musculoskeletal: denies: back pain, arthralgia Skin: denies: rash, lesions Neurological: headache, weakness. denies: confusion Physical Exam - Physical Exam Vital Signs: Vital Signs 12/11/18 12/11/18 12/11/18 02:54 03:07 03:15 Temperature 97.9 F Pulse Rate 115 H 136 H 107 H Respiratory 18 18 22 Rate Blood Pressure 110/65 138/96 O2 Sat by Pulse 96 95 Oximetry 12/11/18 12/11/18 12/11/18 03:52 04:00 04:15 Temperature Pulse Rate 104 H 102 H 99 H Respiratory 16 21 19 Rate Blood Pressure 138/96 121/90 124/87 O2 Sat by Pulse 96 97 97 Oximetry 12/11/18 12/11/18 12/11/18 04:30 04:45 05:00 Temperature Pulse Rate 98 H 96 H 99 H Respiratory 21 19 20 Rate Blood Pressure 127/87 124/87 120/89 O2 Sat by Pulse 92 97 97 Oximetry Physical Exam: GENERAL: Patient has a cachectic appearance. HEENT: Normocephalic. Atraumatic. Patient has moist mucous membranes. EYES: Extraocular motions are intact. Pupils are equal and reactive to light bilaterally. NECK: Supple. Trachea is midline. CHEST/LUNGS: Clear to auscultation. There is no respiratory distress noted. HEART/CARDIOVASCULAR: Regular. There is no tachycardia. There is no obvious murmur. ABDOMEN: Abdomen is soft, nontender. Patient has normal bowel sounds. There is no abdominal distention. SKIN: Skin is warm and dry. NEURO: The patient is awake, alert, and oriented. The patient is cooperative. There is a mild left upper extremity drift. There is a moderate to severe left lower extremity drift in which the leg with the gurney. The patient has normal speech. There is a left-sided nasolabial fold paresis/facial droop. MUSCULOSKELETAL: There is no tenderness or deformity. There is no evidence of a cute injury. ED Course Vital Signs 12/11/18 12/11/18 12/11/18 02:54 03:07 03:15 Temperature 97.9 F Pulse Rate 115 H 136 H 107 H Respiratory 18 18 22 Rate Blood Pressure 110/65 138/96 O2 Sat by Pulse 96 95 Oximetry 12/11/18 12/11/18 12/11/18 03:52 04:00 04:15 Temperature Pulse Rate 104 H 102 H 99 H Respiratory 16 21 19 Rate Blood Pressure 138/96 121/90 124/87 O2 Sat by Pulse 96 97 97 Oximetry 12/11/18 12/11/18 12/11/18 04:30 04:45 05:00 Temperature Pulse Rate 98 H 96 H 99 H Respiratory 21 19 20 Rate Blood Pressure 127/87 124/87 120/89 O2 Sat by Pulse 92 97 97 Oximetry - Consultations Consultation #1: I spoke with the neurosurgeon electronic plotting system operator for [facility], Dr. Patel, who has accepted the patient for transfer to [facility]. He has requested the patient receive a gram of Keppra and 10 mg of dexamethasone. 12/11/18 05:18 ED Medical Decision Making - Lab Data Result diagrams: 12/11/18 03:12 12/11/18 03:12 - EKG Data -: EKG Interpreted by Me EKG shows normal: sinus rhythm (PVCs), axis, intervals, QRS complexes, ST-T waves (nonspecific ST-T waves) Rate: tachycardia (104 bpm) - EKG Data When compared to previous EKG there are: no significant change Interpretation: unchanged when compared t (03/29/18) - Radiology Data Radiology results: report reviewed PROCEDURE: CT CERVICAL SPINE WO CON TECHNIQUE: Computerized tomography of the cervical spine was performed from the skull base to T1 without contrast material. HISTORY: fall COMPARISON: No prior studies are available for comparison. FINDINGS: There are no fractures or malalignments. The disc spaces are normal. The facet joints are intact. There is no facet dislocation. The skull base and foramen magnum are intact. Soft tissues are unremarkable. IMPRESSION: No significant abnormality. Transcribed By: CO Dictated By: ANGELY BARBA MD Electronically Authenticated By: ANGELY BARBA MD Signed Date/Time: 12/11/18 0402 PROCEDURE: CT HEAD/BRAIN WO CON TECHNIQUE: Computerized tomography of the head was performed without contrast material. HISTORY: neuro deficits lt; 6hrs or sx present upon awakening hx. lung ca with brain mets COMPARISON: 10/25/2018 FINDINGS: There is vasogenic edema in the right frontal lobe similar to prior study. Previously noted right frontal metastasis is ill-defined due to lack of contrast but appears to be larger measuring approximately 3 centimeters in diameter currently. There is mass effect on the frontal horn of the right lateral ventricle causing slight effacement. There is left-sided shift of the septum pellucidum by 3.5 millimeters. There is no herniation. There is no hemorrhage. There is no evidence of recent infarction. The bony calvarium is intact. The paranasal sinuses are clear. IMPRESSION: Right frontal vasogenic edema appear is unchanged from prior study. Right frontal metastasis may be slightly larger but evaluation is limited without contrast. There is no hemorrhage or recent infarction. There is mass effect and midline shift as described. There is no herniation. Transcribed By: CO Dictated By: ANGELY BARBA MD Electronically Authenticated By: ANGELY BARBA MD Signed Date/Time: 12/11/18 1189 - Medical Decision Making Patient presents to the emergency department after having a ground-level fall at home secondary to acute left-sided weakness. On examination he does have mild left upper extremity and moderate left lower extremity weakness, along with some left-sided facial paralysis. This is new for the patient. CT of the cervical spine did not show any fracture, subluxation or any acute process. CT scan of the head without contrast showed the same vasogenic edema, slightly larger frontal metastatic tumor and now some new mass effect and left sided shift. This will require evaluation from a neurosurgeon, which we do not have here. For this reason I contacted [facility] and spoke with the neurosurgeon, Dr. Patel, was accepted the patient for admission. The patient was given Keppra and dexamethasone. Otherwise the patient's vital signs are stable and the patient remains awake and oriented. - Differential Diagnosis CVA, TIA, Malignancy, Dysrythmia Critical Care Time: Yes Critical care time in (mins) excluding proc time.: 35 Critical care attestation.: If time is entered above; I have spent that time in minutes in the direct care of this critically ill patient, excluding procedure time. Critical care time was spent on this patient during his initial evaluation, multiple re- evaluations, ordering and interpretation of labs and imaging, discussion with the neurosurgeon, discussion with the patient and his family. Critical Care Time: 35 minutes ED Disposition Clinical Impression: Brain metastases, Left-sided weakness, Small cell carcinoma of lung, Midline shift of brain, Neoplasm of brain causing mass effect on adjacent structures Disposition: DC/TX-70 ANOTHER TYPE HLTHCARE Is pt being admited?: Yes Condition: Serious Referrals: JOANA PATEL MD [Primary Care Provider] - 3-5 Days Time of Disposition: 05:22 - Assessment Assessment Interval: Baseline - Level of Consciousness 1a. Level of Consciousness: alert/keenly responsive - LOC Questions 1b. LOC Questions: answers both correctly - LOC Command 1c. LOC Commands: performs tasks correctly - Best Gaze 2. Best Gaze: normal - Visual 3. Visual: no visual loss - Facial Palsy 4. Facial Palsy: partial paralysis - Motor Arm 5b. Motor Arm Right: no drift 5a. Motor Arm Left: drift - Motor Leg 6b. Motor Leg Right: no drift 6a. Motor Leg Left: some gravity effort - Limb Ataxia 7. Limb Ataxia: absent - Sensory 8. Sensory: normal - Best Language 9. Best Language: no aphasia - Dysarthria 10. Dysarthria: normal - Extinction and Inattention 11. Extinction/Inattention: no abnormality - Scoring Total Score: 5 Stroke Severity: Moderate Stroke
== END 2018-12-11 05:45 | disposition other institution (70) ==
LOC: ED 02:53
DX: C34.90 Malignant neoplasm of unspecified part of unspecified bronchus or lung (principal); C79.31 Secondary malignant neoplasm of brain; G93.9 Disorder of brain, unspecified; D49.6 Neoplasm of unspecified behavior of brain; F17.200 Nicotine dependence, unspecified, uncomplicated; W01.0XXA Fall on same level from slipping, tripping and stumbling without subsequent striking against object, initial encounter; Y93.89 Activity, other specified; Y92.89 Other specified places as the place of occurrence of the external cause; Y99.8 Other external cause status
CPT/HCPCS: 36415; 70450; 72125; 80048; 82962; 84484; 85025; 85610; 85670; 85730; 93005; 93010; 96374; 96375; 99291; J1100; J1953

== ENCOUNTER 2019-01-07 12:25 | Inpatient (IN) | payer MEDICAID ==
[2019-01-07] MEDS ORDERED: NACL 0.9% 1000 ML IV ONE (13:16)
--- NOTE | 2019-01-07 13:25 | Emergency Department Report ---
ED General Adult HPI - General Chief complaint: Dyspnea/Respdistress Stated complaint: RESPIRATORY DISTRESS Time Seen by Provider: 01/07/19 13:08 Source: patient, family, EMS (ems notes not available at time of chart dictation), RN notes reviewed, old records reviewed Mode of arrival: Stretcher Limitations: Physical Limitation - History of Present Illness Initial comments: This is an unfortunate 58-year-old gentleman, known to this provider previously, recent history of small cell carcinoma of the lung, reported to be in remission, history of chemotherapy, anemia of chronic disease, normal ejection fraction on echocardiogram, typically follows with DrEvy CAMPOVERDE The patient is a resident of a local [facility], where his physician is Dr. Eduardo Bhatia. Patient is currently a full code, as for discussion with his nephew, Mr. Adolfo Canales; [phone] The patient is sent to the emergency room for shortness of breath. As per verbal report from nursing staff, patient currently on hospice, and recently was eating grits, and reportedly aspirated. The patient is awake, but somewhat delirious, he will follow some commands, he indicates he is not having pain, but he is not able to answer open-ended questions. -: unknown Quality: other Consistency: other Improves with: other Worsens with: other Associated Symptoms: confusion, fever/chills, malaise, shortness of breath, weakness - Related Data Home Medications Medication Instructions Recorded Confirmed Last Taken No Known Home Medications [No 06/21/17 01/07/19 Unknown Reported Home Medications] Allergies Allergy/AdvReac Type Severity Reaction Status Date / Time No Known Allergies Allergy Unverified 05/08/17 11:20 ED Review of Systems ROS: Stated complaint: RESPIRATORY DISTRESS Other details as noted in HPI Comment: Unobtainable due to pts medical conditions Constitutional: diaphoresis, malaise, weakness Respiratory: cough, SOB with exertion, SOB at rest Gastrointestinal: nausea, vomiting Neurological: weakness ED Past Medical Hx - Past Medical History Hx Sickle Cell Disease: No Hx HIV: No Additional medical history: LUNG CANCER stage 4, chemo & rad to lung and brain; last tx 08/2018 - Social History Smoking Status: Current Every Day Smoker Substance Use Type: Alcohol - Medications Home Medications: Home Medications Medication Instructions Recorded Confirmed Last Taken Type No Known Home Medications [No 06/21/17 01/07/19 Unknown History Reported Home Medications] ED Physical Exam - General Limitations: Physical Limitation General appearance: anxious, in distress - Head Head exam: Present: atraumatic - Eye Eye exam: Present: PERRL, EOMI - ENT ENT exam: Present: mucous membranes dry - Neck Neck exam: Present: normal inspection, full ROM. Absent: tenderness, meningismus - Respiratory Respiratory exam: Present: respiratory distress, rhonchi, accessory muscle use, decreased breath sounds. Absent: stridor - Cardiovascular Cardiovascular Exam: Present: normal rhythm, tachycardia, systolic murmur - GI/Abdominal GI/Abdominal exam: Present: soft, other (scaphoid abdomen, appears malnourished). Absent: distended, tenderness, guarding, rebound, rigid, pulsatile mass - Extremities Exam Extremities exam: Present: normal inspection (patient appears wasted), other (2+ pulses noted in the bilateral upper, lower extremities. Compartments soft. No long bony tenderness. The pelvis is stable.). Absent: pedal edema, calf te nderness - Back Exam Back exam: Absent: CVA tenderness (R), CVA tenderness (L) - Neurological Exam Neurological exam: Present: altered, other (awake, follows commands. There is left-sided weakness.. Unable to complete detailed neurologic examination secondary to acute delirium, work of breathing) - Psychiatric Psychiatric exam: Present: anxious - Skin Skin exam: Present: dry ED Course Vital Signs 01/07/19 01/07/19 01/07/19 12:45 13:01 13:07 Temperature 100.2 F H Pulse Rate 122 H 132 H 135 H Pulse Rate [ Bilateral] Respiratory 15 35 H 24 Rate Respiratory Rate [Bilateral ] Blood Pressure 116/84 116/84 Blood Pressure [Right] O2 Sat by Pulse 100 100 Oximetry 01/07/19 01/07/19 01/07/19 13:15 13:31 13:33 Temperature Pulse Rate 128 H 127 H Pulse Rate [ Bilateral] Respiratory 19 20 Rate Respiratory Rate [Bilateral ] Blood Pressure 119/86 121/77 Blood Pressure [Right] O2 Sat by Pulse 87 100 100 Oximetry 01/07/19 01/07/19 01/07/19 13:43 13:45 14:01 Temperature 100.2 F H Pulse Rate 127 H 127 H Pulse Rate [ Bilateral] Respiratory 23 24 Rate Respiratory Rate [Bilateral ] Blood Pressure 127/86 133/80 Blood Pressure [Right] O2 Sat by Pulse 100 100 Oximetry 01/07/19 01/07/19 01/07/19 14:15 14:21 14:31 Temperature Pulse Rate 128 H 128 H Pulse Rate [ 95 H Bilateral] Respiratory 31 H 22 Rate Respiratory 16 Rate [Bilateral ] Blood Pressure 134/87 134/87 Blood Pressure [Right] O2 Sat by Pulse 100 100 Oximetry 01/07/19 01/07/19 01/07/19 14:45 15:01 15:15 Temperature Pulse Rate 124 H 114 H 124 H Pulse Rate [ Bilateral] Respiratory 26 H 21 20 Rate Respiratory Rate [Bilateral ] Blood Pressure 135/94 121/91 120/89 Blood Pressure [Right] O2 Sat by Pulse 100 100 100 Oximetry 01/07/19 01/07/19 01/07/19 15:31 15:45 16:00 Temperature Pulse Rate 115 H 104 H 101 H Pulse Rate [ Bilateral] Respiratory 16 22 25 H Rate Respiratory Rate [Bilateral ] Blood Pressure 132/86 138/73 121/85 Blood Pressure [Right] O2 Sat by Pulse 100 100 100 Oximetry 01/07/19 01/07/19 01/07/19 16:05 16:35 16:46 Temperature 100.2 F H Pulse Rate 92 H 92 H 92 H Pulse Rate [ Bilateral] Respiratory 19 14 22 Rate Respiratory Rate [Bilateral ] Blood Pressure 121/85 121/85 Blood Pressure 129/92 [Right] O2 Sat by Pulse 100 100 100 Oximetry 01/07/19 01/07/19 01/07/19 16:55 17:00 17:16 Temperature Pulse Rate 95 H 92 H Pulse Rate [ Bilateral] Respiratory 21 13 Rate Respiratory Rate [Bilateral ] Blood Pressure 121/85 121/85 Blood Pressure [Right] O2 Sat by Pulse 100 100 98 Oximetry 01/07/19 01/07/19 01/07/19 17:30 17:46 18:00 Temperature Pulse Rate 92 H 91 H 91 H Pulse Rate [ Bilateral] Respiratory 12 20 19 Rate Respiratory Rate [Bilateral ] Blood Pressure 121/85 121/85 121/85 Blood Pressure [Right] O2 Sat by Pulse 97 98 81 L Oximetry 01/07/19 01/07/19 01/07/19 18:03 18:16 18:30 Temperature 98.7 F Pulse Rate 100 H 92 H 90 Pulse Rate [ Bilateral] Respiratory 21 20 14 Rate Respiratory Rate [Bilateral ] Blood Pressure 121/85 121/85 Blood Pressure 125/92 [Right] O2 Sat by Pulse 100 100 Oximetry 01/07/19 18:46 Temperature Pulse Rate 90 Pulse Rate [ Bilateral] Respiratory 18 Rate Respiratory Rate [Bilateral ] Blood Pressure 121/85 Blood Pressure [Right] O2 Sat by Pulse 100 Oximetry - Reevaluation(s) Reevaluation #1: 01/07/19 16:58 Multiple discussions have been had with Mr. Canales, the patient's nephew, regarding advanced directives, goals of care. Currently, the family indicates patient is a full code, but they are contemplating palliative care. Family has given consent for CT scan to exclude pulmonary embolus. Patient still on high flow high stability nasal cannula. Hospital physician, Dr. aPrk Mcmullen, has accepted the patient to the medical service Reevaluation #2: 01/07/19 18:33 ct head shows worsening vasogenic edema, worsening shift. CT scan of the chest shows pneumonia, no pulmonary embolus The Hospital physician, Dr. Mcmullen, requests that we transfer, as we do not have neuro surgery, neuro critical care available for consultation [facility] paged Reevaluation #3: 01/07/19 19:18 Dr Harris at [facility] accepts but requests neurosurgery to be on board; we are awaiting call back updated nephew, Mr Canales, who consents to transfer his uncle to [facility] for services not available here awaiting call back from neuro surgery Reevaluation #4: 01/07/19 19:27 Dr Marcus of neurosurgery agrees to consult Reevaluation #5: 01/07/19 19:37 Dr Harris of [facility] neuro critical care accepts to [facility] ED Medical Decision Making - Lab Data Result diagrams: 01/07/19 13:48 01/07/19 13:48 Vital Signs 01/07/19 01/07/19 01/07/19 12:45 13:01 13:07 Temperature 100.2 F H Pulse Rate 122 H 132 H 135 H Respiratory 15 35 H 24 Rate Blood Pressure 116/84 116/84 O2 Sat by Pulse 100 100 Oximetry 01/07/19 01/07/19 01/07/19 13:15 13:31 13:33 Temperature Pulse Rate 128 H 127 H Respiratory 19 20 Rate Blood Pressure 119/86 121/77 O2 Sat by Pulse 87 100 100 Oximetry 0301/07/19 01/07/19 13:43 13:45 14:01 Temperature 100.2 F H Pulse Rate 127 H 127 H Respiratory 23 24 Rate Blood Pressure 127/86 133/80 O2 Sat by Pulse 100 100 Oximetry 01/07/19 01/07/19 14:15 14:31 Temperature Pulse Rate 128 H 128 H Respiratory 31 H 22 Rate Blood Pressure 134/87 134/87 O2 Sat by Pulse 100 100 Oximetry Lab Results 01/07/19 01/07/19 01/07/19 Range/Units 13:48 13:48 13:48 WBC 21.0 H (4.5-11.0) K/mm3 RBC 4.52 (3.65-5.03) M/mm3 Hgb 11.5 L (11.8-15.2) gm/dl Hct 36.9 (35.5-45.6) % MCV 82 L (84-94) fl MCH 26 L (28-32) pg MCHC 31 L (32-34) % RDW 18.9 H (13.2-15.2) % Plt Count 391 (140-440) K/mm3 Sodium 143 (137-145) mmol/L Potassium 3.7 (3.6-5.0) mmol/L Chloride 104.8 (98-107) mmol/L Carbon Dioxide 22 (22-30) mmol/L Anion Gap 20 mmol/L BUN 26 H (9-20) mg/dL Creatinine 0.7 L (0.8-1.5) mg/dL Estimated GFR > 60 ml/min BUN/Creatinine Ratio 37 % Glucose 135 H (75-100) mg/dL Lactic Acid 2.90 H* (0.7-2.0) mmol/L Calcium 9.4 (8.4-10.2) mg/dL Magnesium (1.7-2.3) mg/dL Total Bilirubin 0.30 (0.1-1.2) mg/dL AST 55 H (5-40) units/L ALT 43 (7-56) units/L Alkaline Phosphatase 139 H (35-129) units/L Total Creatine Kinase (55-170) units/L Total Protein 6.8 (6.3-8.2) g/dL Albumin 3.4 L (3.9-5) g/dL Albumin/Globulin Ratio 1.0 % 01/07/19 Range/Units 13:48 WBC (4.5-11.0) K/mm3 RBC (3.65-5.03) M/mm3 Hgb (11.8-15.2) gm/dl Hct (35.5-45.6) % MCV (84-94) fl MCH (28-32) pg MCHC (32-34) % RDW (13.2-15.2) % Plt Count (140-440) K/mm3 Sodium (137-145) mmol/L Potassium (3.6-5.0) mmol/L Chloride (98-107) mmol/L Carbon Dioxide (22-30) mmol/L Anion Gap mmol/L BUN (9-20) mg/dL Creatinine (0.8-1.5) mg/dL Estimated GFR ml/min BUN/Creatinine Ratio % Glucose (75-100) mg/dL Lactic Acid (0.7-2.0) mmol/L Calcium (8.4-10.2) mg/dL Magnesium 3.00 H (1.7-2.3) mg/dL Total Bilirubin (0.1-1.2) mg/dL AST (5-40) units/L ALT (7-56) units/L Alkaline Phosphatase (35-129) units/L Total Creatine Kinase 377 H (55-170) units/L Total Protein (6.3-8.2) g/dL Albumin (3.9-5) g/dL Albumin/Globulin Ratio % - EKG Data -: EKG Interpreted by Ar - EKG Data 01/07/19 14:50 Sinus tachycardia, 126 bpm, borderline normal axis, atrial enlargement, motion artifact, intervals within normal limits, left ventricular hypertrophy, not consistent with ST elevation myocardial infarction, abnormal EKG, appears unchanged from prior - Radiology Data Radiology results: report reviewed, image reviewed X-ray of the chest demonstrates emphysematous changes, lower lobe malignancy changes - Medical Decision Making Differential diagnosis, including but not limited to: Pneumonia, dehydration, bacteremia, sepsis, urinary tract infection, pulmonary embolus Assessment and plan: 58-year-old gentleman with tachycardia, leukocytosis, lactic acidosis, increased work of breathing, likely aspiration pneumonia, pneumonitis. Patient is a poor historian, somewhat delirious, and is unable to describe open-ended or close ended modifications, and is unable to articulate his goals of care. His nephew is currently at the bedside, and indicates the patient has full code. Patient placed on high flow, high-humidity nasal cannula. The patient will be resuscitated according to the sepsis pathway with IV fluids and broad-spectrum antibiotics. He will be given rectal acetaminophen, and he will be made nothing by mouth. Prognosis is extremely poor. Extensive discussion had with nephew regarding advanced directives, goals of care, nephew indicates that he understands, and he will discuss with the patie nt's sister and family, to clarify advanced directives. Currently, there is no power of research attorney signed. Critical Care Time: Yes Critical care time in (mins) excluding proc time.: 120 Critical care attestation.: If time is entered above; I have spent that time in minutes in the direct care of this critically ill patient, excluding procedure time. ED Disposition Clinical Impression: Systemic inflammatory response syndrome, Respiratory distress, Brain metastases Disposition: DC/TX- SHRT-TRM GEN HOSP IP Is pt being admited?: No Does the pt Need Aspirin: No Condition: Poor
[2019-01-07] MEDS ORDERED: VANCOMYCIN/NS 1 GM/250 ML 1 GM/250 ML BAG IV ONE (14:02)
[2019-01-07] MEDS ORDERED: TYLENOL PR ONE (14:02)
--- NOTE | 2019-01-07 14:08 | XRay Report ---
AP CHEST: HISTORY: Respiratory failure Compared to. The lungs are hyperinflated consistent with advanced emphysema. There are prominent interstitial markings in the lower left lung which may represent radiation changes. Please correlate with the patient's clinical history. This does not have the typical appearance of an infiltrate or mass. The right lung is clear. No pleural effusion or pneumothorax. Normal heart size. The bony structures are demineralized but grossly intact. IMPRESSION: Emphysema. Probable radiation changes at the left lung base. No acute process is identified.
[2019-01-07 14:13] LABS: Hematocrit 36.9 % (35.5-45.6); Hemoglobin 11.5 gm/dl (11.8-15.2); Mean Corpuscular HGB Conc 31 % (32-34); Mean Corpuscular Volume 82 fl (84-94); Platelet Count 391 K/mm3 (140-440); Red Blood Count 4.52 M/mm3 (3.65-5.03); Red Cell Distribution Width 18.9 % (13.2-15.2)
[2019-01-07] MEDS ORDERED: ATROVENT IH ONE (14:21)
[2019-01-07] MEDS ORDERED: PROVENTIL IH ONE (14:21)
[2019-01-07] MEDS ORDERED: SOLU-Medrol IV ONE (14:21)
[2019-01-07 14:33] LABS: Alanine Aminotransferase 43 units/L (7-56); Albumin 3.4 g/dL (3.9-5); BUN/Creatinine Ratio 37; Blood Urea Nitrogen 26 mg/dL (9-20); Calcium 9.4 mg/dL (8.4-10.2); Hemolysis Index 1
[2019-01-07] MEDS ORDERED: MAXIPIME/NS 1 GM/100 ML 1 GM/100 ML BAG IV SCH (15:00)
[2019-01-07 15:25] LABS: Basophils % (Manual) 0 % (0.0-1.8); Eosinophils % (Manual) 0 % (0.0-4.3); RBC Morphology Normal; Total Cells Counted 100
[2019-01-07 15:43] LABS: Bacteria,Urine 1+ /HPF (Negative); Bilirubin,Urine NEG (Negative); Blood,Urine NEG (Negative); Color,Urine Yellow (Yellow); Mucus,Urine FEW /HPF; Protein,Urine <15 mg/dL mg/dL (Negative); Urobilinogen,Urine < 2.0 mg/dL (<2.0)
--- NOTE | 2019-01-07 17:25 | Cat Scan Report ---
PROCEDURE: CT ANGIO CHEST TECHNIQUE: Following administration of IV contrast axial helical imaging was performed through the c hest with sagittal and coronal reformatted images and maximum intensity projection images obtained. HISTORY: sob lung ca septic COMPARISONS: CT chest dated October 25, 2018 FINDINGS: There has been interval increase in the size of the left upper lobe pleural-based and hilar mass. There has been interval development of additional pulmonary nodules in the left upper lobe. There has been interval development of narrowing of left upper and lower lobe bronchi by surrounding tumor. There are patchy pulmonary infiltrates in the left upper and lower lobes which may be infectious and noninfectious in etiology. There has been interval development of diffuse left pleural thickening. There is no evidence of pneumothorax or pleural fluid collection. The heart appears to be normal size. The thoracic aorta is normal caliber. No filling defects are demonstrated within the pulmonary arteries to suggest the presence of pulmonar y artery emboli. The visualized portion of the upper abdomen is unremarkable. The bony structures are notable for interval development of a compression fracture of the superior en dplate of the T9 vertebral body with associated lytic change in the superior endplate suggestive of a pathologic compression fracture. Loss of height is less than 50%. IMPRESSION: 1. Interval increase in size of left upper lobe pleural-based and hilar mass with narrowing of the le ft upper and lower lobe bronchi and interval development of additional pulmonary nodules in the left upper lobe. 2. Left upper and lower lobe pulmonary infiltrates which may be infectious or noninfectious in etiolo gy. 3. Narrowing of the left upper and lower lobe bronchi by surrounding tumor. 4. No evidence of pulmonary artery emboli. 5. Interval development of pathologic compression fracture T9 vertebral body since previous CT dated October 25, 2018. This document is electronically signed by Mikayla Weaver MD., January 07 2019 05:23:57 PM ET
--- NOTE | 2019-01-07 18:08 | Cat Scan Report ---
PROCEDURE: CT HEAD/BRAIN WO CON TECHNIQUE: Axial helical imaging from the skull base to the vertex. HISTORY: ams history of lung cancer with known intracranial metastasis. COMPARISONS: Head CT dated December 11, 2018. FINDINGS: There is an approximately 4.6 cm mass in the right frontal lobe with associated vasogenic edema in th e subcortical and deep white matter of the right frontal lobe. There appears to been slight interval increase in size of the right frontal lobe mass. There is definite interval increase in the degree of vasogenic edema. There is mass effect on the adjacent brain with effacement of the subarachnoid spaces in the right fr ontal, temporal and parietal lobes, partial effacement of the right frontal horn and leftward subfalc ine herniation (midline shift) of approximately 6.5 mm. In the degree of leftward subfalcine herniati on appears to be slightly increased in the interval. There is no evidence of intracranial hemorrhage. Ventricular size is concordant with the degree of atrophy. The visualized portions of the orbits, paranasal and mastoid sinuses are unremarkable. The bony structures are unremarkable. IMPRESSION: 1. Slight interval increase in size of right frontal lobe mass, interval increase in degree of associ ated vasogenic edema and slight interval increase in degree of leftward subfalcine herniation (midlin e shift) compared to the previous head CT dated December 11, 2017. This document is electronically signed by Mikayla Weaver MD., January 07 2019 06:06:48 PM ET
[2019-01-07] MEDS ORDERED: DECADRON IV STA (19:06)
[2019-01-07] MEDS ORDERED: KEPPRA 1,000 MG/NS 0.75% 100ML 1,000 MG/100 ML BAG IV STA (19:11)
[2019-01-07] MEDS ORDERED: KEPPRA 1,000 MG/NS 0.75% 100ML 1,000 MG/100 ML BAG IV ONE (19:37)
[2019-01-07] MEDS ORDERED: DECADRON ONE (19:37)
[2019-01-08 03:01] VITALS: BP 118/72
--- NOTE | 2019-01-08 07:36 | Event Note ---
Date: 01/07/19 Patient transferred to [facility] by Dr Barboza Brain mass with Shift
== END 2019-01-08 02:56 | disposition short-term general hospital (02) | DRG 204 ==
LOC: ED 12:25 → IMCU 16:59
PROVIDERS: ADMIT Internal Medicine; ATTEND Internal Medicine
DX: R06.03 Acute respiratory distress (principal); C79.31 Secondary malignant neoplasm of brain; R65.10 Systemic inflammatory response syndrome (SIRS) of non-infectious origin without acute organ dysfunction; Z85.118 Personal history of other malignant neoplasm of bronchus and lung; F17.200 Nicotine dependence, unspecified, uncomplicated
CPT/HCPCS: 36415; 70450; 71045; 71275; 80053; 81001; 82140; 82550; 83735; 85007; 85025; 87040; 87086; 93005; 93010; 94644; 94760; 96374; 96375; 99291; 99292; G0378; J0692; J1100; J1953; J2930; J3370; J7030; Q9967